=== PATIENT | female | born 1970 | race Caucasian/White ===

== ENCOUNTER 2025-05-17 20:21 | Emergency (ER) | payer OTHER, SELFPAY ==
[2025-05-17 20:35] VITALS: BP 129/80; PULSE 87; RESP 18; TEMP 36.6; O2SAT 99
--- NOTE | 2025-05-18 01:08 | ED.SKABFB ---
HPI - Skin/Abscess/Foreign Bdy General Chief complaint: Skin/Abscess/Foreign Body Stated complaint: R ankle blister/sunburn, tick bite Time Seen by Provider: 05/18/25 01:01 Source: patient Mode of arrival: ambulatory Limitations: no limitations History of Present Illness HPI narrative: This is a 54-year-old female that presents to the emergency department for a sunburn. Sustained a couple of days ago. Reports redness to the bilateral shins and a small blister to the right great toe. She has not taken anything for pain. She has been applying aloe to the area. Related Data Allergies Allergy/AdvReac Type Severity Reaction Status Date / Time Penicillins Allergy Unknown Verified 03/03/19 12:04 Review of Systems Review of Systems: All systems reviewed & are unremarkable except as noted in HPI and below PMFSH Past Medical History Medical History (Updated 05/18/25 @ 01:15 by Kathie Vaughan PA-C) History of migraine Exam Narrative: GENERAL: Well-appearing, well-nourished, and in no acute distress. HEAD: Normocephalic, atraumatic. EYES: EOMI. EXTREMITIES: Normal range of motion. No edema. Bilateral shins with redness. Very small blister to the right great toe. Normal DP pulses SKIN: Warm, dry, no rash. NEURO: No focal deficits. Alert and oriented x3. PSYCH: Normal mood and affect Course Vital Signs Vital signs: Vital Signs Temperature 98 F 05/17/25 20:35 Pulse Rate 87 05/17/25 20:35 Respiratory Rate 18 05/17/25 20:35 Blood Pressure 129/80 05/17/25 20:35 Pulse Oximetry 99 05/17/25 20:35 Oxygen Delivery Room Air 05/17/25 20:35 Temperature 98 F 05/17/25 20:35 Pulse Rate 87 05/17/25 20:35 Respiratory Rate 18 05/17/25 20:35 Blood Pressure 129/80 05/17/25 20:35 Pulse Oximetry 99 05/17/25 20:35 Oxygen Delivery Room Air 05/17/25 20:35 MDM - Skin/Abscess/Foreign Bdy MDM Narrative Medical decision making narrative: Patient presents the emergency department for sunburns. Wounds were cleansed and covered with Silvadene. Educated on further wound care. She is to follow up with primary provider. She was given warnings to return to the ER Critical Care Time Critical Care Time Critical Care Time: No Discharge Plan Discharge Clinical Impression: Sunburn Patient Disposition: Home Condition: Stable Instructions: Antibiotic Form, Sunburn (ED) Additional Instructions: Return if symptoms worsen or concerns: any increase in redness, swelling, pain or fever over 101 Clean wound with mild soapy water. Apply antibiotic ointment daily. Tylenol or Ibuprofen as needed for pain Follow up with primary care doctor Patient Language: Armenian Follow-up/Referrals: Jermain,MD Todd ([place]) [Primary Care Provider] -
[2025-05-18] MEDS: SILVER SULFADIAZINE 1% CR 50 GM JAR (*BKC) 1 APPLIC TOPICAL (01:40)
[2025-05-18 01:46] VITALS: BP 137/76; PULSE 76; RESP 16; TEMP 37.1; O2SAT 98
== END 2025-05-18 01:47 | disposition home or self-care (01) ==
LOC: ANHED 05-18 01:31
PROVIDERS: Emergency Provider Physician Assistant; PCP Internal Medicine
DX: L55.1 Sunburn of second degree (principal)
CPT/HCPCS: 16000; 99283; A9270